=== PATIENT | female | born 1955 | race Caucasian/White ===

== ENCOUNTER → 2020-02-01 13:49 | Outpatient (CLI) | payer OTHER, SELFPAY ==
--- NOTE | ~2020-02-01 | XR_ITS ---
EXAMINATION: XR knee LT 2V DATE: 02/01/2020 14:09 INDICATION: Chronic left knee pain. TECHNIQUE: 2 views of left knee were obtained. COMPARISON: None. FINDINGS: Bone alignment is normal. No fracture. There is mild osteoarthritis of patellofemoral braden rtment. There is a small knee joint effusion. IMPRESSION: 1. Mild left knee osteoarthritis. 2. Small left knee joint effusion. Reviewed, dictated and finalized at location A.
--- NOTE | ~2020-02-01 | XR_ITS ---
EXAMINATION: XR knee RT 2V DATE: 02/01/2020 14:09 INDICATION: Right knee pain. TECHNIQUE: 2 views of right knee were obtained. COMPARISON: None. FINDINGS: Bone alignment is normal. No fracture. There is mild osteoarthritis of medial and patellofe moral compartments characterized by tiny marginal osteophytes. There is a small knee joint effusion. IMPRESSION: 1. Mild right knee osteoarthritis. 2. Small right knee joint effusion. Reviewed, dictated and finalized at location A.
== END ==
PROVIDERS: PCP Internal Medicine; Visit Provider Internal Medicine
DX: M25.561 Pain in right knee (principal); M25.562 Pain in left knee; G89.29 Other chronic pain; M17.0 Bilateral primary osteoarthritis of knee; M25.462 Effusion, left knee; M25.461 Effusion, right knee
CPT/HCPCS: 73560

== ENCOUNTER → 2020-06-07 17:52 | Outpatient (CLI) | payer OTHER, SELFPAY ==
--- NOTE | ~2020-06-07 | MM_ITS ---
EXAMINATION: MM screening [place] BI w luann HISTORY: Screening mammogram TECHNIQUE: Craniocaudal and mediolateral oblique 3-D tomosynthesis images were obtained and synthetic 2-D images were generated. CAD analysis was submitted and interpreted. COMPARISON: 02/20/2019, 01/30/2018 bilateral digital screening mammogram examinations BREAST PARENCHYMAL COMPOSITION: There are scattered areas of fibroglandular density. FINDINGS: There is no evidence of suspicious mass, calcification, or architectural distortion to sugg est malignancy in either breast. There has been no suspicious interval change. IMPRESSION: 1. No mammographic evidence of malignancy. 2. Recommend routine screening mammography in one year. BI-RADS Category 1: Negative Reviewed, dictated and finalized at location A. ANNEALER
== END ==
PROVIDERS: Visit Provider Internal Medicine
DX: Z12.31 Encounter for screening mammogram for malignant neoplasm of breast (principal)
CPT/HCPCS: 77063; 77067

== ENCOUNTER 2021-04-29 10:14 | Emergency (ER) | payer MEDICARE, SELFPAY ==
[2021-04-29 10:26] VITALS: BP 117/69; PULSE 73; RESP 18; TEMP 37.1; O2SAT 100
[2021-04-29 10:46] VITALS: BP 117/69; PULSE 73; RESP 18; TEMP 37.1; O2SAT 100
--- NOTE | 2021-04-29 10:50 | ED.URI ---
HPI - URI/Sore Throat General Chief Complaint: Upper Respiratory Infection Stated Complaint: Cough,Sore Throat,Body Aches,Lt Ear Pain Source: patient and RN notes reviewed Mode of arrival: ambulatory Limitations: no limitations History of Present Illness HPI Narrative: Desiree is a 65-year-old female patient who ambulated into the [facility]. Patient states on Friday she started with a cough sore throat, left ear pain, headache and not feeling well. Patient has taken Zyrtec [id number]. Patient has been vaccinated for Covid. Patient says she does have a history of allergies there was a field across her house that was being combine this week. Patient states in 2019 she was hospitalized for sepsis due to strep and UTI. Patient states she has had 2 other episodes that resulted in hospitalization from sepsis. MD elicited complaint: sore throat Related Data Home Medications Medication Instructions Recorded Confirmed estradiol 10 mcg VAGINAL DAILY 04/29/21 04/29/21 ospemifene [Osphena] 60 mg PO DAILY 04/29/21 04/29/21 Allergies Allergy/AdvReac Type Severity Reaction Status Date / Time acetaminophen [From Vicodin] Allergy Severe Chest Pain Verified 04/29/21 10:45 codeine Allergy Severe Chest Pain Verified 04/29/21 10:45 hydrocodone [From Vicodin] Allergy Severe Chest Pain Verified 04/29/21 10:45 azithromycin AdvReac Intermediate Nausea and Verified 04/29/21 10:46 Vomiting Review of Systems Review of Systems: CONSTITUTIONAL: Denies body aches, +fever, +chills, or sweats. EYES: Denies visual changes, redness, or discharge. ENT: Denies rhinorrhea, + congestion, + sore throat, o+ left otalgia. CARDIOVASCULAR: Denies chest pain, palpitations, or edema. RESPIRATORY: Denies cough or dyspnea. GASTROINTESTINAL: Denies abdominal pain, nausea, vomiting, or diarrhea. GENITOURINARY: Denies dysuria or hematuria. SKIN: Denies rash, itching, or wounds. MUSCULOSKELETAL: Denies back pain, joint pain, or myalgia. NEUROLOGIC: Denies headache, numbness, tingling, or weakness. PSYCH: Denies depression or anxiety. All systems reviewed & are unremarkable except as noted in HPI and below PMFSH Family History Family History Mother Hypertension Family history of hearing loss Father Family history of lung cancer Family history of malignant neoplasm of bone Social History Social History Smoking status: Never smoker Alcohol intake: current Comments At time of signature, I have reviewed and agree with nursing past medical, surgical, social and family history unless otherwise noted. Please see nursing chart for further information. There is no relevant family history pertinent to the presenting complaint Exam Narrative: GENERAL: Well-appearing, well-nourished, and in no acute distress. HEAD: Normocephalic, atraumatic. EYES: EOMI. No redness or drainage. Conjunctivae normal. ENT: Mucous membranes pink and moist. Nares clear. No rhinorrhea. TMs: Left TM bulging, erythemic, Right TM dull, moderate bulding, Throat erythemic, 3+ tonsils, no exudate. Uvula midline. NECK: Normal AROM. Supple. Left anterior cervical lymphadenopathy. CHEST: No respiratory distress. Clear to auscultation. HEART: Regular rate and rhythm. No murmur appreciated. Normal peripheral pulses. MUSCULOSKELETAL: No bony tenderness. EXTREMITIES: Normal range of motion. No edema. SKIN: Warm, dry, no rash. Capillary refill normal. Normal skin turgor. NEURO: No focal deficits. Alert and oriented x3. Gait steady. PSYCH: Normal affect. No signs of depression or anxiety. Course Vital Signs Vital signs: Vital Signs Temperature 37.1 C 04/29/21 10:26 Pulse Rate 73 04/29/21 10:26 Respiratory Rate 18 04/29/21 10:26 Blood Pressure 117/69 04/29/21 10:26 Pulse Oximetry 100 04/29/21 10:26 Temperature 37.1 C 04/29/21 10:46 Puls
== END 2021-04-29 11:00 | disposition home or self-care (01) ==
PROVIDERS: Emergency Provider Nurse Practitioner Family; PCP Physician Assistant
DX: H66.002 Acute suppurative otitis media without spontaneous rupture of ear drum, left ear (principal); Z20.822 Contact with and (suspected) exposure to COVID-19
CPT/HCPCS: 87081; 87426; 87880; 99213; C9803; G0463

== ENCOUNTER 2022-12-14 12:00 | Emergency (ER) | payer MEDICARE, SELFPAY ==
[2022-12-14 12:13] VITALS: BP 149/65; PULSE 82; RESP 18; TEMP 36.6; O2SAT 100
[2022-12-14 12:21] VITALS: BP 149/65; PULSE 82; RESP 18; TEMP 36.6; O2SAT 100
--- NOTE | 2022-12-14 12:31 | ED.GENADULT ---
HPI - General Adult General Chief complaint: Upper Respiratory Infection Stated complaint: sore throat Time Seen by Provider: 12/14/22 12:21 Source: patient and RN notes reviewed Mode of arrival: ambulatory Limitations: no limitations History of Present Illness HPI narrative: Patient presents today complaining of left-sided sore throat. Yesterday while she was cleaning her teeth with dental instruments, she accidentally scratched the back of her throat. Patient was a dental hygienist for several years. She has been having pain to this area since that time. She tried some Chloraseptic, which helped for short period time. Patient wanted to make sure that she was not developing an infection as she has been septic from MRSA in the past, but not in her mouth. Related Data Home Medications Medication Instructions Recorded Confirmed estradiol 10 mcg vaginal tablet 10 mcg vaginal DAILY 04/29/21 04/29/21 ospemifene 60 mg tablet (Osphena) 60 mg PO DAILY 04/29/21 04/29/21 alpha lipoic acid 50 mg capsule 50 mg PO BID 12/14/22 12/14/22 resveratrol 50 mg capsule mg PO 12/14/22 vitamin B complex (B tablet 12/14/22 Complex-Vitamin B12 tablet) Allergies Allergy/AdvReac Type Severity Reaction Status Date / Time acetaminophen [From Vicodin] Allergy Severe Chest Pain Verified 04/29/21 10:45 codeine Allergy Severe Chest Pain Verified 04/29/21 10:45 hydrocodone [From Vicodin] Allergy Severe Chest Pain Verified 04/29/21 10:45 azithromycin AdvReac Intermediate Nausea and Verified 04/29/21 10:46 Vomiting Review of Systems Review of Systems: CONSTITUTIONAL: Denies body aches, fever, chills, or sweats. EYES: Denies visual changes, redness, or discharge. ENT: Denies rhinorrhea, congestion, or otalgia.+ sore throat CARDIOVASCULAR: Denies chest pain, palpitations, or edema. RESPIRATORY: Denies cough or dyspnea. GASTROINTESTINAL: Denies abdominal pain, nausea, vomiting, or diarrhea. GENITOURINARY: Denies dysuria or hematuria. SKIN: Denies rash, itching, or wounds. MUSCULOSKELETAL: Denies back pain, joint pain, or myalgia. NEUROLOGIC: Denies headache, numbness, tingling, or weakness. PSYCH: Denies depression or anxiety. [facility] Family History Family History Mother Hypertension Family history of hearing loss Father Family history of lung cancer Family history of malignant neoplasm of bone Social History Social History Smoking status: Never smoker Alcohol intake: current Comments At time of signature, I have reviewed and agree with nursing past medical, surgical, social and family history unless otherwise noted. Please see nursing chart for further information. There is no relevant family history pertinent to the presenting complaint Exam Narrative: GENERAL: Well-appearing, well-nourished, and in no acute distress. HEAD: Normocephalic, atraumatic. EYES: EOMI. No redness or drainage. Conjunctivae normal. ENT: Mucous membranes pink and moist. Patient has some irritation to the left oropharynx and palatine arch. No obvious abrasion or scrapes noted. No swelling or discharge noted. NECK: Normal AROM. CHEST: No respiratory distress. EXTREMITIES: Normal range of motion. No edema. SKIN: Warm, dry, no rash. Capillary refill normal. Normal skin turgor. NEURO: No focal deficits. Alert and oriented x3. Gait steady. PSYCH: Normal affect. No signs of depression or anxiety. Course Course Level of Care: Express Care Visit Vital Signs Vital signs: Vital Signs Temperature 97.9 F 12/14/22 12:13 Pulse Rate 82 12/14/22 12:13 Respiratory Rate 18 12/14/22 12:13 Blood Pressure 149/65 H 12/14/22 12:13 Pulse Oximetry 100 12/14/22 12:13 Oxygen Delivery Room Air 12/14/22 12:13 Temperature 97.9 F 12/14/22 12:21 Pulse Rate 82 12/14/22 12:21 Respiratory Rate 18
== END 2022-12-14 12:40 | disposition home or self-care (01) ==
PROVIDERS: Emergency Provider Nurse Practitioner; PCP Family Medicine
DX: S19.9XXA Unspecified injury of neck, initial encounter (principal); X58.XXXA Exposure to other specified factors, initial encounter
CPT/HCPCS: 87081; 87880; 99213; G0463

== ENCOUNTER 2025-01-20 09:03 | Outpatient (CLI) | payer MEDICARE, SELFPAY ==
--- NOTE | ~2025-01-20 | MR_ITS ---
EXAMINATION: MR lower leg RT wo con DATE: 01/20/2025 09:41 INDICATION: Right lower leg pain and burning sensation TECHNIQUE: Magnetic resonance imaging (MRI) of the right lower leg was performed without intravenous contrast. A marker was placed over the mass. Sequences included axial, sagittal and coronal T1-weigh bessy FSE and fluid sensitive FSE STIR. The contralateral left lower leg is included on the coronal odell ges. COMPARISON: None. FINDINGS: Bone alignment is normal in both lower legs. There is normal bone marrow signal throughout with no st ress reaction, fracture or other pathologic marrow replacing process. Suggestion of mild polyarticula r osteoarthritis at the right knee and joints at the right ankle and visualized hind foot however the joint spaces are located at the margins of the field of imaging mildly limiting evaluation. No evide nt joint effusions or other abnormal fluid collections. There is normal and symmetric muscle bulk and signal throughout the bilateral calves. Visualized portion of the tendons are unremarkable. IMPRESSION: 1. Mild polyarticular osteoarthritis at the right knee, ankle and hindfoot. Otherwise unremarkable MR I of the right lower leg. Reviewed, dictated and finalized at location A. IMPRESSION: 1. Mild polyarticular osteoarthritis at the right knee, ankle and hindfoot. Oth erwise unremarkable MRI of the right lower leg.
== END 2025-01-20 09:04 | disposition home or self-care (01) ==
PROVIDERS: PCP Family Medicine; Visit Provider Family Medicine
DX: M79.661 Pain in right lower leg (principal)
CPT/HCPCS: 73718